=== PATIENT | male | born 1990 | race Caucasian/White ===

== ENCOUNTER 2021-01-27 23:27 | Emergency (ER) | payer MEDICAID ==
[2021-01-27] MEDS ORDERED: Ketorolac 30 MG/ML SDV IVPUSH STA (23:37)
[2021-01-27] MEDS ORDERED: Sodium Chloride 0.9% 10 ML Syringe FLUSH PRN (23:37)
[2021-01-27] MEDS ORDERED: Morphine 4 MG/ML VIAL IVPUSH STA (23:37)
[2021-01-27] MEDS ORDERED: Ondansetron 4 MG/2 ML SDV IVPUSH STA (23:40)
[2021-01-27] MEDS ORDERED: Sodium Chloride 0.9% 1,000 ML IV SCH (23:45)
[2021-01-28] MEDS ORDERED: Iopamidol 755 Mg/ML 100 ML Bottle IV ONE (00:02)
--- NOTE | 2021-01-28 00:28 | EDM.PDOC ---
ED HPI GENERAL MEDICAL PROBLEM - General Chief Complaint: Abdominal Pain Stated Complaint: ABDOMINAL PAIN Time Seen by Provider: 01/27/21 23:30 Source of Information: Reports: Patient History Limitations: Reports: No Limitations - History of Present Illness INITIAL COMMENTS - FREE TEXT/NARRATIVE: Patient presented to the ED because of abdominal pain which started at 1700. The pain is sharp,7/10, over the RUQ and epigastric area and RLQ. There is associated N/V x 3. There is no fever,chills, cough or cold symptoms. There is no urinary symptoms or changes in bowel movements. Upper abdominal Pain Score (Numeric/FACES): 9 - Related Data Allergies Allergy/AdvReac Type Severity Reaction Status Date / Time No Known Allergies Allergy Verified 01/27/21 23:45 Home Meds: Home Meds Albuterol [Proventil Neb Soln] 2.5 mg INH Q4H PRN 09/08/18 [History] estradioL [Estradiol] 2 mg SL TID 01/27/21 [History] Ciprofloxacin HCl [Cipro] 500 mg PO BID #20 tablet 01/28/21 [Rx] metroNIDAZOLE [Flagyl] 500 mg PO Q8H #30 tab 01/28/21 [Rx] Past Medical History Respiratory History: Reports: Asthma Musculoskeletal History: Reports: Fracture Other Musculoskeletal History: hx fx patella Neurological History: Reports: Other (See Below) Other Neuro History: hx cluster FUNES Psychiatric History: Reports: Anxiety, Depression Endocrine/Metabolic History: Reports: Obesity/BMI 30+ - Past Surgical History Head Surgeries/Procedures: Reports: None HEENT Surgical History: Reports: Tonsillectomy Social & Family History - Family History Family Medical History: No Pertinent Family History - Tobacco Use Tobacco Use Status *Q: Current Every Day Tobacco User Years of Tobacco use: 15 Packs/Tins Daily: 0.5 - Caffeine Use Caffeine Use: Reports: Soda - Recreational Drug Use Recreational Drug Use: Yes Drug Use in Last 12 Months: No Recreational Drug Type: Reports: Marijuana/Hashish ED ROS GENERAL - Review of Systems Review Of Systems: See Below Constitutional: Reports: No Symptoms HEENT: Reports: No Symptoms Respiratory: Reports: No Symptoms Cardiovascular: Reports: No Symptoms Endocrine: Reports: No Symptoms GI/Abdominal: Reports: No Symptoms, Nausea, Vomiting : Reports: No Symptoms Musculoskeletal: Reports: No Symptoms Skin: Reports: No Symptoms Neurological: Reports: No Symptoms Psychiatric: Reports: No Symptoms ED EXAM, GI/ABD - Physical Exam Exam: See Below Exam Limited By: No Limitations General Appearance: Alert, No Apparent Distress Ears: Normal External Exam, Normal Canal Nose: Normal Inspection Throat/Mouth: Normal Inspection, Normal Lips Head: Atraumatic, Normocephalic Neck: Normal Inspection, Supple, Non-Tender, Full Range of Motion Respiratory/Chest: No Respiratory Distress, Lungs Clear, Normal Breath Sounds, No Accessory Muscle Use, Chest Non-Tender Cardiovascular: Normal Peripheral Pulses, Regular Rate, Rhythm, No Edema, No Gallop, No JVD, No Murmur, No Rub GI/Abdominal Exam: Normal Bowel Sounds, Soft, No Organomegaly, Other (tenderness over the RUQ/RLQ/Epigastric area) Back Exam: Normal Inspection, Full Range of Motion Extremities: Normal Inspection, Normal Range of Motion, Non-Tender Neurological: Alert, Oriented, CN II-XII Intact, Normal Cognition, Normal Gait, Normal Reflexes, No Motor/Sensory Deficits Psychiatric: Normal Affect, Normal Mood Skin Exam: Warm, Dry, Intact, Normal Color Course - Vital Signs Text/Narrative:: Labs/abd-pelvis CT result was discussed with patient NS 1 L bolus Toradol 30 mg IV x1 Morphine 4 mg IV x1 Zofran 4 mg IV x1 Last Recorded V/S: Last Vital Signs Temp 36.5 C 01/27/21 23:27 Pulse 104 H 01/27/21 23:27 Resp 20 01/27/21 23:27 BP 134/76 01/27/21 23:27 Pulse Ox 98 01/27/21 23:27 - Orders/Labs/Meds Orders: Active Orders 24 hr Category Date Time Status Abdomen Pelvis w Cont [CT] Stat Exams 01/27/21 23:37 Ordered UA W/MICROSCOPIC [URIN] Stat Lab 01/27/21 23:37 Ordered Sodium Chloride 0.9% [Normal Saline] 1,000 ml Med 01/27/21 23:45 Active IV ASDIRECTED Sodium Chloride 0.9% [Saline Flush] Med 01/27/21 23:37 Active 10 ml FLUSH ASDIRECTED PRN Saline Lock Insert [OM.PC] Routine Oth 01/27/21 23:37 Ordered Medication Orders Sodium Chloride (Normal Saline) 1,000 mls @ 999 mls/hr IV ASDIRECTED TENA Last Admin: 01/28/21 00:00 Dose: 999 mls/hr Documented by: SIDRA Sodium Chloride (Saline Flush) 10 ml FLUSH ASDIRECTED PRN PRN Reason: Keep Vein Open Last Admin: 01/28/21 00:00 Dose: 10 ml Documented by: SIDRA Labs: Laboratory Tests 01/27/21 01/27/21 01/27/21 Range/Units 23:40 23:40 23:40 WBC 21.6 H (3.2-10.1) x10-3/uL RBC 5.10 (3.90-5.90) x10(6)uL Hgb 15.1 (12.9-17.7) g/dL Hct 45.5 (38.3-50.1) % MCV 89.4 (80.8-98.7) fL MCH 29.6 (27.0-33.3) pg MCHC 33.1 (28.7-35.3) g/dL RDW 13.8 (12.4-15.0) % Plt Count 297 (117-477) x10(3)uL MPV 11.7 H (6.7-11.0) fL Neut % (Auto) 80.7 H (40.3-71.8) % Lymph % (Auto) 11.6 L (15.8-45.3) % [place] % (Auto) 5.1 L (5.5-15.2) % Eos % (Auto) 2.1 (0.1-6.8) % Baso % (Auto) 0.5 (0.3-3.8) % Neut # (Auto) 17.4 H (1.7-6.9) x10-3/uL Lymph # (Auto) 2.5 (0.5-4.5) x10-3/uL [place] # (Auto) 1.1 (0.0-1.2) x10-3/uL Eos # (Auto) 0.4 (0.0-0.6) x10-3/uL Baso # (Auto) 0.1 (0.0-0.3) x10-3/uL PT (9.0-11.1) sec INR (1.00-1.24) APTT (24.4-33.2) SECONDS Sodium 139 (135-145) mmol/L Potassium 4.5 (3.5-5.3) mmol/L Chloride 100 (100-110) mmol/L Carbon Dioxide 29 (21-32) mmol/L BUN 10 (7-18) mg/dL Creatinine 1.2 (0.70-1.30) mg/dL Est Cr Clr Drug Dosing 93.78 mL/min Estimated GFR (MDRD) > 60 (>60) BUN/Creatinine Ratio 8.3 L (9-20) Glucose 123 H (80-116) mg/dL Calcium 9.1 (8.6-10.2) mg/dL Total Bilirubin 0.5 (0.1-1.3) mg/dL AST 23 (5-25) IU/L ALT 58 H (12-36) U/L Alkaline Phosphatase 71 (56-112) IU/L Total Protein 7.6 (6.0-8.0) g/dL Albumin 3.8 (3.5-5.2) g/dL Globulin 3.8 g/dL Albumin/Globulin Ratio 1.0 Amylase 28 (25-115) U/L Lipase 83 (73-393) U/L /07/12 Range/Units 23:40 WBC (3.2-10.1) x10-3/uL RBC (3.90-5.90) x10(6)uL Hgb (12.9-17.7) g/dL Hct (38.3-50.1) % MCV (80.8-98.7) fL MCH (27.0-33.3) pg MCHC (28.7-35.3) g/dL RDW (12.4-15.0) % Plt Count (117-477) x10(3)uL MPV (6.7-11.0) fL Neut % (Auto) (40.3-71.8) % Lymph % (Auto) (15.8-45.3) % [place] % (Auto) (5.5-15.2) % Eos % (Auto) (0.1-6.8) % Baso % (Auto) (0.3-3.8) % Neut # (Auto) (1.7-6.9) x10-3/uL Lymph # (Auto) (0.5-4.5) x10-3/uL [place] # (Auto) (0.0-1.2) x10-3/uL Eos # (Auto) (0.0-0.6) x10-3/uL Baso # (Auto) (0.0-0.3) x10-3/uL PT 10.4 (9.0-11.1) sec INR 0.96 L (1.00-1.24) APTT 27.3 (24.4-33.2) SECONDS Sodium (135-145) mmol/L Potassium (3.5-5.3) mmol/L Chloride (100-110) mmol/L Carbon Dioxide (21-32) mmol/L BUN (7-18) mg/dL Creatinine (0.70-1.30) mg/dL Est Cr Clr Drug Dosing mL/min Estimated GFR (MDRD) (>60) BUN/Creatinine Ratio (9-20) Glucose (80-116) mg/dL Calcium (8.6-10.2) mg/dL Total Bilirubin (0.1-1.3) mg/dL AST (5-25) IU/L ALT (12-36) U/L Alkaline Phosphatase (56-112) IU/L Total Protein (6.0-8.0) g/dL Albumin (3.5-5.2) g/dL Globulin g/dL Albumin/Globulin Ratio Amylase (25-115) U/L Lipase (73-393) U/L Meds: Medications Generic Name Dose Route Start Last Admin Trade Name Freq PRN Reason Stop Dose Admin Sodium Chloride 1,000 mls @ 999 mls/hr 01/27/21 23:45 01/28/21 00:00 Normal Saline IV 999 mls/hr ASDIRECTED TENA Administration Sodium Chloride 10 ml 01/27/21 23:37 01/28/21 00:00 Saline Flush FLUSH 10 ml ASDIRECTED PRN Administration Keep Vein Open Discontinued Medications Generic Name Dose Route Start Last Admin Trade Name Freq PRN Reason Stop Dose Admin Iopamidol 100 ml 01/28/21 00:02 01/28/21 00:17 Isovue-370 (76%) IV 01/28/21 00:03 100 ml . DIRECTED ONE Administration Ketorolac Tromethamine 30 mg 01/27/21 23:37 01/28/21 00:03 Toradol IVPUSH 01/27/21 23:38 30 mg NOW STA Administration Morphine Sulfate 4 mg 01/27/21 23:37 01/28/21 00:05 Morphine IVPUSH 01/27/21 23:38 4 mg NOW STA Administration Ondansetron HCl 4 mg 01/27/21 23:40 01/28/21 00:01 Zofran IVPUSH 01/27/21 23:41 4 mg NOW STA Administration Departure - Departure Time of Disposition: 01:15 Disposition: Home, Self-Care 01 Condition: Good Clinical Impression: Enteritis, Bacterial enteritis, unspecified - Discharge Information Prescriptions: Ciprofloxacin HCl [Cipro] 500 mg PO BID #20 tablet metroNIDAZOLE [Flagyl] 500 mg PO Q8H #30 tab Instructions: Nausea and Vomiting, Adult, [id number] Referrals: PCP,None [Primary Care Provider] - Forms: ED Department Discharge Additional Instructions: Please read discharge instructions on enteritis Increase oral fluids Take cipro 500 mg twice daily for 10 days Flagyl/metronidazole 500 mg 3 times daily for 10 days Ibuprofen 800 mg with tylenol 1000 mg every 8 hours as needed for pain Follow up with your doctor if no improvement after the course of antibiotic ointment. Sepsis Event Note (ED) - Evaluation Sepsis Screening Result: No Definite Risk - Focused Exam Vital Signs: Vital Signs Temp Pulse Resp BP Pulse Ox 01/27/21 23:27 36.5 C 104 H 20 134/76 98 - My Orders Last 24 Hours: My Active Orders 01/27/21 23:37 Abdomen Pelvis w Cont [CT] Stat UA W/MICROSCOPIC [URIN] Stat Sodium Chloride 0.9% [Saline Flush] 10 ml FLUSH ASDIRECTED PRN Saline Lock Insert [OM.PC] Routine 01/27/21 23:45 Sodium Chloride 0.9% [Normal Saline] 1,000 ml IV ASDIRECTED - Assessment/Plan Last 24 Hours: My Active Orders 01/27/21 23:37 Abdomen Pelvis w Cont [CT] Stat UA W/MICROSCOPIC [URIN] Stat Sodium Chloride 0.9% [Saline Flush] 10 ml FLUSH ASDIRECTED PRN Saline Lock Insert [OM.PC] Routine 01/27/21 23:45 Sodium Chloride 0.9% [Normal Saline] 1,000 ml IV ASDIRECTED
[2021-01-28] MEDS ORDERED: metroNIDAZOLE 500 MG Tab PO STA (01:12)
[2021-01-28] MEDS ORDERED: Ciprofloxacin 500 MG Tab PO STA (01:12)
== END 2021-01-28 01:37 | disposition home or self-care (01) ==
LOC: FB.ED 23:27
DX: A04.9 Bacterial intestinal infection, unspecified (principal); J45.909 Unspecified asthma, uncomplicated; E66.9 Obesity, unspecified; Z72.0 Tobacco use; Z68.41 Body mass index [BMI] 40.0-44.9, adult
CPT/HCPCS: 36415; 74177; 80053; 82150; 83690; 85025; 85610; 85730; 96374; 96375; 99284; 99285-25; A9270-GY; J1885; J2270; J2405; J7030; Q9967

== ENCOUNTER 2022-08-09 16:19 | Emergency (ER) | payer MEDICAID ==
[2022-08-09] MEDS ORDERED: Albuterol/Ipratropium 3.0-0.5 MG/3 ML Neb Soln NEB ONE (16:29)
[2022-08-09] MEDS ORDERED: methylPREDNISolone Sodium Succinate 125 MG/2 ML SDV IVPUSH ONE (16:30)
[2022-08-09] MEDS ORDERED: Albuterol/Ipratropium 3.0-0.5 MG/3 ML Neb Soln ONE (16:31)
[2022-08-09] MEDS ORDERED: methylPREDNISolone Sodium Succinate 125 MG/2 ML SDV ONE (16:32)
[2022-08-09] MEDS ORDERED: Azithromycin 500 MG in Sodium Chloride 0.9% 250 ML IV ONE (16:34)
[2022-08-09 16:57] LABS: ESTIMATED GFR 117 mL/min (>60)
[2022-08-09 17:30] LABS: CORONAVIRUS COVID-19 NAA NEGATIVE (NEGATIVE)
== END 2022-08-09 18:45 | disposition home or self-care (01) ==
LOC: FB.ED 16:19
DX: J45.901 Unspecified asthma with (acute) exacerbation (principal); J21.9 Acute bronchiolitis, unspecified; R06.4 Hyperventilation; E66.9 Obesity, unspecified; Z79.899 Other long term (current) drug therapy; Z91.048 Other nonmedicinal substance allergy status; Z20.822 Contact with and (suspected) exposure to COVID-19
CPT/HCPCS: 0240U; 36415; 71046; 80053; 85025; 85379; 96365; 96375; 99285; J0456; J2930; J7050; J7620

== ENCOUNTER 2023-01-15 18:51 | Emergency (ER) | payer MEDICAID ==
[2023-01-15] MEDS ORDERED: Cyclobenzaprine 10 MG Tab PO ONE (19:35)
[2023-01-15] MEDS ORDERED: Acetaminophen/HYDROcodone 325-5 MG Tab PO ONE (19:35)
[2023-01-15] MEDS ORDERED: Ketorolac 30 MG/ML SDV IM STA (19:35)
== END 2023-01-15 20:49 | disposition home or self-care (01) ==
LOC: FB.ED 18:51
DX: M54.16 Radiculopathy, lumbar region (principal); J45.909 Unspecified asthma, uncomplicated; E66.9 Obesity, unspecified; Z68.42 Body mass index [BMI] 45.0-49.9, adult; Z72.0 Tobacco use; Z91.048 Other nonmedicinal substance allergy status; Z79.899 Other long term (current) drug therapy
CPT/HCPCS: 96372; 99283; A9270; J1885

== ENCOUNTER 2025-09-23 18:43 | Emergency (ER) | payer MEDICAID ==
[2025-09-23] MEDS ORDERED: Amoxicillin/Clavulanate K 875-125 MG Tab PO ONE (18:44)
[2025-09-23] MEDS: Ketorolac 30 MG/ML SDV IM ONE (19:06)
== END 2025-09-23 19:20 | disposition home or self-care (01) ==
LOC: FB.ED 18:43
DX: K04.7 Periapical abscess without sinus (principal); Z91.09 Other allergy status, other than to drugs and biological substances; Z79.899 Other long term (current) drug therapy; Z86.16 Personal history of COVID-19
CPT/HCPCS: 96372; 99282; A9270; J1885